=== PATIENT | male | born 1995 | race Caucasian/White ===

== ENCOUNTER 2018-11-04 06:25 | Emergency (ER) | payer OTHER ==
[2018-11-04] MEDS ORDERED: Ondansetron INJ* 2 MG/ML VIAL IV ONE (06:29)
[2018-11-04] MEDS ORDERED: NS 0.9% 1000 ML** 1,000 ML IV ONE ×2 (06:29→06:52)
[2018-11-04 06:58] LABS: ABS Basophils 0.1 10^3/ul (0-0.2); ABS Eosinophils 0 10^3/ul (0-0.6); ABS Lymphocytes 2.3 10^3/ul (1.0-4.8); ABS Monocytes 0.4 10^3/ul (0-0.8); ABS Nucleated RBC 0 10^3/ul; Eosinophil % 0.1 %; Hematocrit 44 % (36-46); Hemoglobin 15.5 g/dL (14.0-18.0); Lymphocyte % 26.5 %; Mean Corpuscular HGB Conc 35 g/dL (31-36); Mean Corpuscular Hemoglobin 30 pg (27-31); Mean Corpuscular Volume 86 fL (80-94); Mean Platelet Volume 8.3 fL (7.4-10.4); Nucleated Red Blood Cells % 0.2; Platelet Count 303 10^3/uL (150-450); Red Cell Distribution Width 12 % (10.5-15); White Blood Count 8.8 10^3/uL (3.5-10.8)
[2018-11-04 07:18] LABS: Albumin 5.1 g/dL (3.2-5.2); Albumin/Globulin Ratio 2.1 (1-3); Calcium 9.6 mg/dL (8.6-10.3); EGFR African American 106.9 (>60); EGFR Non-African American 88.3 (>60); Globulin 2.4 g/dL (2-4); Potassium 3.7 mmol/L (3.5-5.0); Total Bilirubin 0.7 mg/dL (0.2-1.0); Total Protein 7.5 g/dL (6.4-8.9)
--- NOTE | 2018-11-04 07:19 | ED ---
Abdominal Pain/Male - HPI Summary HPI Summary: Patient is a 23-year-old male presenting to the ED with nausea, vomiting, mid abdominal pain since early this morning. He states he went out drinking last night and drink heavily. Since that time, he has been having nausea and vomiting and nausea and worsening abdominal pain. The abdominal pain is nonradiating. Denies any urinary symptoms including back pain. He states he has had this in the past when he is trying to much, but never this severe. He states he has also been following a Keto diet with low carbs. He thinks if he has no carbs in the system and no fluids, he is coming to the ED at this time to obtain fluids. He has not tried to eat or drink anything at this time. He endorses approximately 3-4 episodes of nausea and vomiting and is endorsing " dry heaving." - History of Current Complaint Chief Complaint: EDNauseaVomitDiarrh Stated Complaint: DRY HEAVING PER PT Time Seen by Provider: 11/04/18 06:30 Hx Obtained From: Patient Onset/Duration: Sudden Onset Timing: Constant Severity Initially: Moderate Severity Currently: Moderate Pain Intensity: 3 Pain Scale Used: 0-10 Numeric Radiates: No Character: Sharp Aggravating Factor(s): Nothing Alleviating Factor(s): Nothing Associated Signs And Symptoms: Positive: Negative - Risk Factors Testicular Torsion: Negative Cardiac Risk Factors: Negative - Allergies/Home Medications Allergies/Adverse Reactions: Allergies Allergy/AdvReac Type Severity Reaction Status Date / Time No Known Allergies Allergy Verified 11/04/18 06:28 Home Medications: Home Medications NK [No Home Medications Reported] 11/04/18 [History Confirmed 11/04/18] PMH/Surg Hx/FS Hx/Imm Hx Previously Healthy: Yes - Immunization History Hx Pertussis Vaccination: No Immunizations Up to Date: Yes Infectious Disease History: No Infectious Disease History: Denies: Traveled Outside the [place] in Last 30 Days - Social History Occupation: Unemployed, Student Lives: Alone Alcohol Use: Weekly Hx Substance Use: No Substance Use Type: Reports: None Hx Tobacco Use: No Smoking Status (MU): Never Smoked Tobacco Review of Systems Constitutional: Negative Negative: Fever, Chills, Fatigue, Skin Diaphoresis Negative: Palpitations, Chest Pain Negative: Shortness Of Breath, Cough Positive: Abdominal Pain, Vomiting, Nausea. Negative: Diarrhea Genitourinary: Negative Positive: no symptoms reported, see HPI Negative: Arthralgia, Myalgia Skin: Negative Neurological: Negative All Other Systems Reviewed And Are Negative: Yes Physical Exam Triage Information Reviewed: Yes Vital Signs On Initial Exam: Initial Vitals Temp Pulse Resp BP Pulse Ox 97.8 F 97 18 134/72 98 11/04/18 06:26 11/04/18 06:26 11/04/18 06:26 11/04/18 06:26 11/04/18 06:26 Vital Signs Reviewed: Yes Appearance: Positive: Well-Appearing, Well-Nourished Skin: Positive: Warm, Skin Color Reflects Adequate Perfusion Head/Face: Positive: Normal Head/Face Inspection Eyes: Positive: Normal, EOMI, RANDOLPH, Conjunctiva Clear Neck: Positive: Supple, No Lymphadenopathy Respiratory/Lung Sounds: Positive: Clear to Auscultation Cardiovascular: Positive: Pulses are Symmetrical in both Upper and Lower Extremities Abdomen Description: Positive: No Organomegaly, Soft Musculoskeletal: Positive: Strength/ROM Intact Neurological: Positive: Speech Normal Psychiatric: Positive: Affect/Mood Appropriate AVPU Assessment: Alert Diagnostics - Vital Signs Vital Signs Temp Pulse Resp BP Pulse Ox 11/04/18 07:07 91 99 11/04/18 07:05 95 128/64 98 11/04/18 06:26 97.8 F 97 18 134/72 98 - Laboratory Lab Results: Lab Results 11/04/18 Range/Units 06:52 WBC 8.8 (3.5-10.8) 10^3/uL RBC 5.10 (4.18-5.48) 10^6 /uL Hgb 15.5 (14.0-18.0) g/dL Hct 44 (36-46) % MCV 86 (80-94) fL MCH 30 (27-31) pg MCHC 35 (31-36) g/dL RDW 12 (10.5-15) % Plt Count 303 (150-450) 10^3/uL MPV 8.3 (7.4-10.4) fL Neut % (Auto) 68.2 % Lymph % (Auto) 26.5 % Hubbard % (Auto) 4.6 % Eos % (Auto) 0.1 % Baso % (Auto) 0.6 % Absolute Neuts (auto) 6.0 (1.5-7.7) 10^3/ul Absolute Lymphs (auto) 2.3 (1.0-4.8) 10^3/ul Absolute Monos (auto) 0.4 (0-0.8) 10^3/ul Absolute Eos (auto) 0 (0-0.6) 10^3/ul Absolute Basos (auto) 0.1 (0-0.2) 10^3/ul Absolute Nucleated RBC 0 10^3/ul Nucleated RBC % 0.2 Result Diagrams: 11/04/18 06:52 11/04/18 06:52 Lab Statement: Any lab studies that have been ordered have been reviewed, and results considered in the medical decision making process. Abdominal Pain Male Course/Dx - Course Course Of Treatment: During his treatment, the patient's evaluated for dry heaving, nausea, vomiting following a night of drinking. He is given 2 L fluids as well as Zofran. Labs obtained which are WNL. He states he is feeling improved and denies any other symptoms at this time. He will be discharged home with acute nausea and vomiting secondary to alcohol intoxication. - Diagnoses Provider Diagnoses: Nausea & vomiting Discharge - Sign-Out/Discharge Documenting (check all that apply): Patient Departure Patient Received Moderate/Deep Sedation with Procedure: No - Discharge Plan Condition: Stable Disposition: HOME Patient Education Materials: Acute Nausea and Vomiting (ED) [facility]errals: [facility] - Johnathon GILMORE [Primary Care Provider] - Additional Instructions: Drink plenty of fluids today Rest - Billing Disposition and Condition Condition: STABLE Disposition: Home
[2018-11-04 09:47] VITALS: BP 99/69
== END 2018-11-04 09:45 | disposition home or self-care (01) ==
LOC: ED 06:25
DX: R11.2 Nausea with vomiting, unspecified (principal)
CPT/HCPCS: 36415; 80053; 83605; 85025; 96361; 96374; 99282; J2405